=== PATIENT | female | born 1995 | race Caucasian/White ===

== ENCOUNTER 2021-09-10 16:11 | Outpatient (CLI) | payer OTHER ==
[2021-09-10 18:00] LABS: BHCG - Serum Negative (NEGATIVE); Pregs Control Background? CLEAR/WHITE (CLR/WHITE); Pregs Control Bar Appear? YES (CONTROL BAR)
[2021-09-11 14:39] LABS: SARS-CoV-2 PCR by NAA Not Detected (NotDetected)
== END 2021-09-10 16:12 | disposition home or self-care (01) ==
LOC: LABBT 16:11
PROVIDERS: ATTEND Surgery
DX: Z01.812 Encounter for preprocedural laboratory examination (principal); K64.4 Residual hemorrhoidal skin tags; Z20.822 Contact with and (suspected) exposure to COVID-19
CPT/HCPCS: 84703; U0003; U0005

== ENCOUNTER 2021-09-13 09:24 | Day surgery (SDC) | payer OTHER ==
[2021-09-13] MEDS ORDERED: Fentanyl 250 MCG/5 ML VIAL ONE (10:38)
[2021-09-13] MEDS ORDERED: EPINEPHrine 1 MG/ML AMP ONE (10:49)
[2021-09-13] MEDS ORDERED: Lidocaine 2% PF 5 ML VIAL ONE (10:49)
[2021-09-13] MEDS ORDERED: Bupivacaine 0.25% HCL 30 ML VIAL ONE (10:49)
[2021-09-13] MEDS ORDERED: Lidocaine 2% Jelly 5 ML TUBE ONE (10:49)
[2021-09-13] MEDS ORDERED: ceFAZolin Sodium (SDC) 2 GM/100 ML BAG ONE (10:59)
[2021-09-13] MEDS ORDERED: Lidocaine 1% PF 5 ML VIAL ONE (11:10)
[2021-09-13] MEDS ORDERED: Ketorolac Tromethamine 30 MG/ML VIAL ONE (11:10)
[2021-09-13] MEDS ORDERED: PROPOFOL 200 MG/20 ML VIAL ONE (11:10)
[2021-09-13] MEDS ORDERED: Dexamethasone 20 MG/5 ML VIAL ONE (11:10)
[2021-09-13] MEDS ORDERED: Scopolamine 1.5 mg/72 hour Patch ONE (11:17)
== END 2021-09-13 13:52 | disposition home or self-care (01) ==
LOC: SDC 09:24
PROVIDERS: ATTEND Surgery
PROC: 06BY3ZC Excision of Hemorrhoidal Plexus, Percutaneous Approach (ICD-10-PCS; principal; 2021-09-13)
PROC: 0HB8XZZ Excision of Buttock Skin, External Approach (ICD-10-PCS; principal; 2021-09-13)
DX: K64.8 Other hemorrhoids (principal); K64.4 Residual hemorrhoidal skin tags; D22.5 Melanocytic nevi of trunk; Z88.8 Allergy status to other drugs, medicaments and biological substances
CPT/HCPCS: 88304; 88305; J0171; J0690; J1100; J1885; J2001; J2704; J3010; S0020